=== PATIENT | female | born 1945 | race Native Hawaiian/Other Pacific Islander ===

== ENCOUNTER 2021-04-13 08:36 | Outpatient (CLI) | payer OTHER | END 2021-04-13 20:09 | disposition home or self-care (01) | LOC: RAD 08:36 | PROVIDERS: ATTEND Specialist | DX: N95.1 Menopausal and female climacteric states (principal); N95.8 Other specified menopausal and perimenopausal disorders; Z13.820 Encounter for screening for osteoporosis ==